=== PATIENT | female | born 1975 | race Caucasian/White ===

== ENCOUNTER → 2019-03-06 | Outpatient (CLI) | payer MEDICARE, MEDICAID, SELFPAY | PROVIDERS: Family Provider Family Medicine; PCP Family Medicine; Referring Provider Specialist; Visit Provider Specialist | DX: G35 Multiple sclerosis (principal) | CPT/HCPCS: 36415; 96365 ==

== ENCOUNTER → 2019-04-13 09:33 | Outpatient (BNVA) | payer MEDICARE, MEDICAID, SELFPAY | PROVIDERS: Family Provider Family Medicine; PCP Family Medicine; Visit Provider Specialist | DX: G43.711 Chronic migraine without aura, intractable, with status migrainosus (principal); G35 Multiple sclerosis | CPT/HCPCS: 36415; 64615; 96374; 96413; 99214; J2323 ==

== ENCOUNTER 2019-05-14 08:08 | Outpatient (CLI) | payer MEDICARE, MEDICAID, SELFPAY ==
[2019-05-19 18:30] LABS: JCV Antibody NEGATIVE; JCV Index Value 0.15
== END 2019-05-14 08:09 | disposition home or self-care (01) ==
LOC: NSACUTE 08:10
PROVIDERS: Family Provider Family Medicine; PCP Family Medicine; Visit Provider Specialist
DX: G35 Multiple sclerosis (principal)
CPT/HCPCS: 86711; J2323

== ENCOUNTER 2019-06-11 08:05 | Outpatient (CLI) | payer MEDICARE, SELFPAY | END 2019-06-11 08:06 | disposition home or self-care (01) | LOC: NSACUTE 08:08 | PROVIDERS: Family Provider Family Medicine; PCP Family Medicine; Visit Provider Specialist | DX: G35 Multiple sclerosis (principal) | CPT/HCPCS: 96413; J2323 ==

== ENCOUNTER 2019-09-02 09:15 | Outpatient (CLI) | payer MEDICARE, MEDICAID, SELFPAY ==
[2019-09-02] MEDS: SODIUM CHLORIDE 0.9% IV (10:57)
[2019-09-02] MEDS: NATALIZUMAB IV (10:57)
[2019-09-02 11:00] VITALS: BP 112/80; PULSE 70; TEMP 36.7
== END 2019-09-02 09:16 | disposition home or self-care (01) ==
LOC: NSACUTE 10:02
PROVIDERS: Family Provider Family Medicine; PCP Family Medicine; Visit Provider Specialist
DX: G35 Multiple sclerosis (principal); G43.711 Chronic migraine without aura, intractable, with status migrainosus
CPT/HCPCS: J2323

== ENCOUNTER 2019-10-05 09:07 | Outpatient (CLI) | payer MEDICARE, MEDICAID, SELFPAY | END 2019-10-05 09:08 | disposition home or self-care (01) | LOC: NSACUTE 09:11 | PROVIDERS: Family Provider Family Medicine; PCP Family Medicine; Visit Provider Specialist | DX: G43.711 Chronic migraine without aura, intractable, with status migrainosus (principal); G35 Multiple sclerosis | CPT/HCPCS: 64615; 99213; J0585; J2323 ==

== ENCOUNTER 2019-11-05 11:42 | Outpatient (CLI) | payer MEDICARE, MEDICAID, SELFPAY ==
[2019-11-05] MEDS: NATALIZUMAB IV (13:29)
[2019-11-05] MEDS: SODIUM CHLORIDE 0.9% IV (13:29)
[2019-11-05 14:43] VITALS: BP 110/88; PULSE 78
== END 2019-11-05 11:43 | disposition home or self-care (01) ==
LOC: NSACUTE 12:10
PROVIDERS: Family Provider Family Medicine; PCP Family Medicine; Visit Provider Specialist
DX: G35 Multiple sclerosis (principal)
CPT/HCPCS: 96374; J2323

== ENCOUNTER 2019-12-07 09:17 | Outpatient (CLI) | payer MEDICARE, MEDICAID, SELFPAY ==
[2019-12-07] MEDS: NATALIZUMAB IV (11:00)
[2019-12-07] MEDS: SODIUM CHLORIDE 0.9% IV (11:00)
== END 2019-12-07 09:18 | disposition home or self-care (01) ==
LOC: NSACUTE 09:23
PROVIDERS: Family Provider Family Medicine; PCP Family Medicine; Visit Provider Specialist
DX: G35 Multiple sclerosis (principal)
CPT/HCPCS: 96365; J2323

== ENCOUNTER 2020-01-11 09:11 | Outpatient (CLI) | payer MEDICARE, MEDICAID, SELFPAY ==
[2020-01-11] MEDS: SODIUM CHLORIDE 0.9% IV (09:56)
[2020-01-11] MEDS: NATALIZUMAB IV (09:56)
== END 2020-01-11 09:12 | disposition home or self-care (01) ==
PROVIDERS: Family Provider Family Medicine; PCP Family Medicine; Visit Provider Specialist
DX: G35 Multiple sclerosis (principal)
CPT/HCPCS: 96365; J2323

== ENCOUNTER 2020-01-29 10:44 | Outpatient (CLI) | payer MEDICARE, MEDICAID, SELFPAY ==
--- NOTE | 2020-01-29 11:08 | XR_ITS ---
WS: [id number] Left shoulder, 3 views, 01/29/2020 Clinical Data: ACUTE LEFT SHOULDER PAIN Comparison: None. Findings: No fractures or dislocations are seen. The AC joint is normal. The adjacent left clavicle, left scapu la and ribs are normal. The soft tissues are unremarkable. XR/XR shoulder LT min 2V* [id number] Impression: Negative left shoulder.
--- NOTE | 2020-01-29 11:09 | XR_ITS ---
WS: [id number] Left knee, 3 views, 01/29/2020 Clinical Data: ACUTE KNEE PAIN LEFT Comparison: None. Findings: No fractures or dislocations are seen. The joint spaces are normal. The patella is intact. The soft t issues are unremarkable. XR/XR knee LT 3V* [id number] Impression: Negative left knee.
== END 2020-01-29 10:45 | disposition home or self-care (01) ==
PROVIDERS: PCP Family Medicine; Visit Provider Registered Nurse
DX: M25.512 Pain in left shoulder (principal); M25.612 Stiffness of left shoulder, not elsewhere classified; W11.XXXA Fall on and from ladder, initial encounter; M25.562 Pain in left knee
CPT/HCPCS: 73030; 73562

== ENCOUNTER 2020-01-29 11:00 | Outpatient (CLI) | payer MEDICARE, MEDICAID, SELFPAY ==
[2020-01-29 13:09] LABS: 25 Hydroxy Vitamin D 57 ng/mL (30-100); Vitamin B12 808 pg/mL (232-1245)
[2020-01-29 13:19] LABS: Hepatitis A Antibody IgM Non-Reactive (Nonreactive); Hepatitis B Core AB, Total Non-Reactive (Nonreactive); Hepatitis B Surface AB 3.5 (0-8.5); Hepatitis B Surface Antigen Non-Reactive (Nonreactive); Hepatitis C Virus Antibody Non-Reactive (Nonreactive)
[2020-02-04 02:08] LABS: JCV Antibody NEGATIVE; JCV Index Value 0.13
== END 2020-01-29 11:01 | disposition home or self-care (01) ==
PROVIDERS: PCP Family Medicine; Visit Provider Psychiatry & Neurology Neurology
DX: G35 Multiple sclerosis (principal)
CPT/HCPCS: 82306; 82607; 86705; 86706; 86709; 86711; 86803; 87340

== ENCOUNTER 2020-02-08 09:12 | Outpatient (CLI) | payer MEDICARE, MEDICAID, SELFPAY ==
[2020-02-08] MEDS: SODIUM CHLORIDE 0.9% IV (10:45)
[2020-02-08] MEDS: NATALIZUMAB IV (10:45)
== END 2020-02-08 09:13 | disposition home or self-care (01) ==
LOC: NSACUTE 09:25
PROVIDERS: PCP Family Medicine; Visit Provider Specialist
DX: G35 Multiple sclerosis (principal)
CPT/HCPCS: 96372; J2323

== ENCOUNTER 2020-02-16 08:33 | Outpatient (CLI) | payer MEDICARE, MEDICAID, SELFPAY ==
--- NOTE | 2020-02-16 09:01 | MR_ITS ---
WS: [id number] MRI LEFT SHOULDER HISTORY: ACUTE PAIN OF LEFT SHOULDER COMPARISON: LEFT shoulder radiograph 01/29/2020. TECHNIQUE: Multiplanar sequences of the shoulder joint are submitted. Minimal hypertrophic changes around the AC joint capsule. No encroachment upon the supraspinatus. Sma ll osteophyte from the distal undersurface of the acromion. No subacromial or subdeltoid bursal fluid . Biceps tendon remains in normal position. No os acromion. No marrow edema or fractures are identified. No joint effusion. Rotator cuff is intact. No tears or r etraction or atrophy. No labral abnormality. MR/MR shoulder LT wo con* [id number] IMPRESSION: Negative MRI LEFT shoulder.
== END 2020-02-16 08:34 | disposition home or self-care (01) ==
LOC: RADWPI 08:40
PROVIDERS: PCP Family Medicine; Visit Provider Registered Nurse
DX: M25.512 Pain in left shoulder (principal); W19.XXXA Unspecified fall, initial encounter; M25.612 Stiffness of left shoulder, not elsewhere classified
CPT/HCPCS: 73221

== ENCOUNTER → 2020-02-25 12:48 | Outpatient (BNVA) | payer MEDICARE, MEDICAID, SELFPAY | PROVIDERS: PCP Family Medicine; Visit Provider Specialist | DX: G43.711 Chronic migraine without aura, intractable, with status migrainosus (principal); G35 Multiple sclerosis | CPT/HCPCS: 64615; 99212; J0585 ==

== ENCOUNTER 2020-03-07 11:10 | Outpatient (CLI) | payer MEDICARE, MEDICAID, SELFPAY ==
[2020-03-07] MEDS: SODIUM CHLORIDE 0.9% IV (13:21)
[2020-03-07] MEDS: NATALIZUMAB IV (13:21)
[2020-03-07 14:25] VITALS: PULSE 66; RESP 14; TEMP 36.3
== END 2020-03-07 11:11 | disposition home or self-care (01) ==
LOC: NSACUTE 11:43
PROVIDERS: PCP Family Medicine; Visit Provider Specialist
DX: G35 Multiple sclerosis (principal)
CPT/HCPCS: 96365; J2323

== ENCOUNTER 2020-04-07 09:23 | Outpatient (CLI) | payer MEDICARE, MEDICAID, SELFPAY ==
[2020-04-07] MEDS: NATALIZUMAB IV (10:15)
[2020-04-07] MEDS: SODIUM CHLORIDE 0.9% IV (10:15)
== END 2020-04-07 09:24 | disposition home or self-care (01) ==
LOC: NSACUTE 09:24
PROVIDERS: PCP Family Medicine; Visit Provider Specialist
DX: G35 Multiple sclerosis (principal)
CPT/HCPCS: 96365; J2323

== ENCOUNTER 2020-05-19 09:14 | Outpatient (CLI) | payer MEDICARE, MEDICAID, SELFPAY ==
[2020-05-19] MEDS: NATALIZUMAB IV (10:25)
[2020-05-19] MEDS: SODIUM CHLORIDE 0.9% IV (10:25)
== END 2020-05-19 09:15 | disposition home or self-care (01) ==
LOC: NSACUTE 09:19
PROVIDERS: PCP Family Medicine; Visit Provider Specialist
DX: G35 Multiple sclerosis (principal)
CPT/HCPCS: 96365; 96366; J2323

== ENCOUNTER → 2020-05-26 09:33 | Outpatient (BNVA) | payer MEDICARE, MEDICAID, SELFPAY | PROVIDERS: PCP Family Medicine; Visit Provider Specialist | DX: G43.711 Chronic migraine without aura, intractable, with status migrainosus (principal) | CPT/HCPCS: 64615; J0585 ==

== ENCOUNTER 2020-06-27 10:14 | Outpatient (CLI) | payer MEDICARE, MEDICAID, SELFPAY ==
[2020-06-27] MEDS: SODIUM CHLORIDE 0.9% IV (10:50)
[2020-06-27] MEDS: NATALIZUMAB IV (10:50)
--- NOTE | 2020-06-27 10:52 | PC.NURSE ---
Lot [id number] EXP 12/16/22
== END 2020-06-27 10:15 | disposition home or self-care (01) ==
PROVIDERS: PCP Family Medicine; Visit Provider Specialist
DX: G35 Multiple sclerosis (principal)
CPT/HCPCS: 96365; J2323

== ENCOUNTER 2020-07-19 14:55 | Outpatient (CLI) | payer MEDICARE, MEDICAID, SELFPAY ==
--- NOTE | 2020-07-19 15:03 | MM_ITS ---
WS: [id number] Bilateral screening digital mammogram, 07/19/2020 Clinical Data: SCREENING Comparison: None. Findings: The breast parenchymal pattern shows heterogeneous density No spiculated masses or clustered calcific ations are seen. There are no secondary signs of carcinoma. MM/[place] [id number] Impression: 1. Negative bilateral mammogram with no prior images for comparison. 2. Recommend annual screening mammograms. BIRADS: 1-Negative FOLLOW UP: 1 Year Follow-up The CAD design checker was used.
== END 2020-07-19 14:56 | disposition home or self-care (01) ==
PROVIDERS: PCP Family Medicine; Visit Provider Registered Nurse
DX: Z12.31 Encounter for screening mammogram for malignant neoplasm of breast (principal)
CPT/HCPCS: 77067

== ENCOUNTER 2020-07-27 14:04 | Outpatient (CLI) | payer MEDICARE, MEDICAID, SELFPAY ==
[2020-07-27] MEDS: NATALIZUMAB IV (15:48)
[2020-07-27] MEDS: SODIUM CHLORIDE 0.9% IV (15:48)
== END 2020-07-27 14:05 | disposition home or self-care (01) ==
LOC: NSACUTE 14:10
PROVIDERS: PCP Family Medicine; Visit Provider Specialist
DX: G35 Multiple sclerosis (principal)
CPT/HCPCS: 96365; J2323

== ENCOUNTER 2020-09-08 09:16 | Outpatient (CLI) | payer MEDICARE, MEDICAID, SELFPAY ==
[2020-09-08] MEDS: NATALIZUMAB IV (10:35)
[2020-09-08] MEDS: SODIUM CHLORIDE 0.9% IV (10:35)
== END 2020-09-08 09:17 | disposition home or self-care (01) ==
LOC: NSACUTE 09:19
PROVIDERS: PCP Family Medicine; Visit Provider Specialist
DX: G43.711 Chronic migraine without aura, intractable, with status migrainosus (principal); G35 Multiple sclerosis; Z71.89 Other specified counseling
CPT/HCPCS: 64615; 96365; 99214; J0585; J2323

== ENCOUNTER 2020-10-18 10:15 | Outpatient (CLI) | payer MEDICARE, MEDICAID, SELFPAY ==
[2020-10-18] MEDS: SODIUM CHLORIDE 0.9% IV (11:15)
[2020-10-18] MEDS: NATALIZUMAB IV (11:15)
== END 2020-10-18 10:16 | disposition home or self-care (01) ==
LOC: NSACUTE 10:19
PROVIDERS: PCP Family Medicine; Visit Provider Specialist
DX: G35 Multiple sclerosis (principal)
CPT/HCPCS: 96365; J2323

== ENCOUNTER 2020-11-24 08:38 | Outpatient (CLI) | payer MEDICARE, MEDICAID, SELFPAY ==
[2020-11-24] MEDS: NATALIZUMAB IV (09:45)
[2020-11-24] MEDS: SODIUM CHLORIDE 0.9% IV (09:45)
== END 2020-11-24 08:39 | disposition home or self-care (01) ==
LOC: NSACUTE 08:41
PROVIDERS: PCP Family Medicine; Visit Provider Specialist
DX: G35 Multiple sclerosis (principal)
CPT/HCPCS: 96365; J2323

== ENCOUNTER 2020-12-26 09:27 | Outpatient (CLI) | payer MEDICARE, MEDICAID, SELFPAY ==
[2020-12-26] MEDS: NATALIZUMAB IV (10:44)
[2020-12-26] MEDS: SODIUM CHLORIDE 0.9% IV (10:44)
== END 2020-12-26 09:28 | disposition home or self-care (01) ==
PROVIDERS: PCP Family Medicine; Visit Provider Specialist
DX: G35 Multiple sclerosis (principal)
CPT/HCPCS: 96365; J2323

== ENCOUNTER → 2020-12-29 08:13 | Outpatient (BNVA) | payer MEDICARE, MEDICAID, SELFPAY | PROVIDERS: PCP Family Medicine; Visit Provider Specialist | DX: G43.711 Chronic migraine without aura, intractable, with status migrainosus (principal); G35 Multiple sclerosis; Z71.89 Other specified counseling | CPT/HCPCS: 64615; 99213; J0585 ==

== ENCOUNTER 2021-02-02 08:09 | Outpatient (CLI) | payer MEDICARE, MEDICAID, SELFPAY ==
[2021-02-02 08:18] VITALS: BP 104/69; PULSE 71; RESP 16; TEMP 36.6; O2SAT 98
[2021-02-02] MEDS: NATALIZUMAB IV (08:59)
[2021-02-02] MEDS: SODIUM CHLORIDE 0.9% IV (08:59)
[2021-02-02] MEDS: sodium chloride 0.9% (100 ml) 100 ML 115 ML IV (09:52)
[2021-02-02 10:27] VITALS: BP 118/73; PULSE 69; RESP 16; TEMP 36.8; O2SAT 99
== END 2021-02-02 08:10 | disposition home or self-care (01) ==
LOC: ONCMED 08:11
PROVIDERS: PCP Family Medicine; Visit Provider Specialist
DX: G35 Multiple sclerosis (principal)
CPT/HCPCS: 96365; J2323

== ENCOUNTER 2021-03-09 09:30 | Outpatient (CLI) | payer MEDICARE, MEDICAID, SELFPAY ==
[2021-03-09 09:46] VITALS: BP 104/71; PULSE 84; RESP 16; TEMP 36.9; O2SAT 98
[2021-03-09] MEDS: SODIUM CHLORIDE 0.9% IV (10:27)
[2021-03-09] MEDS: NATALIZUMAB IV (10:27)
[2021-03-09 11:34] VITALS: BP 107/76; PULSE 75; RESP 16; TEMP 36.6; O2SAT 98
== END 2021-03-09 09:31 | disposition home or self-care (01) ==
LOC: ONCMED 09:39
PROVIDERS: PCP Family Medicine; Visit Provider Internal Medicine Medical Oncology
DX: G35 Multiple sclerosis; G43.711 Chronic migraine without aura, intractable, with status migrainosus; Z79.899 Other long term (current) drug therapy
CPT/HCPCS: 96365; J2323

== ENCOUNTER → 2021-03-23 10:49 | Outpatient (BNVA) | payer MEDICARE, MEDICAID, SELFPAY | PROVIDERS: PCP Family Medicine; Visit Provider Specialist | DX: G43.711 Chronic migraine without aura, intractable, with status migrainosus (principal); G35 Multiple sclerosis | CPT/HCPCS: 64615; 99212; 99213; J0585 ==

== ENCOUNTER 2021-04-06 09:20 | Outpatient (CLI) | payer MEDICARE, MEDICAID, SELFPAY ==
--- NOTE | 2021-04-06 10:05 | PC.PHAR ---
REGARDING JCV TITER AT [place]: PER OLGA LEVINE PATIENT WAS FOUND TO HAVE HIGH JCV TITER AND SEES NEUROLOGIST AT [place]. BASED ON SECOND OPINION, PATIENT IS OK TO RECEIVE TYSABRI TODAY. DONALDO SAID OK WELL.
[2021-04-06 10:45] VITALS: BP 114/72; PULSE 77; RESP 18; TEMP 36.9; O2SAT 97
[2021-04-06] MEDS: NATALIZUMAB IV (10:53)
[2021-04-06] MEDS: SODIUM CHLORIDE 0.9% IV (10:53)
[2021-04-06] MEDS: sodium chloride 0.9% (100 ml) 100 ML 75 ML (10:53)
--- NOTE | 2021-04-18 12:30 | PC.NURSE ---
NATALIZUMAB END TIME Natalizumab 300mg ended at 1155 on 04/06/21. Unable to chart in [employer], due to past the cutoff date to amend.
== END 2021-04-06 09:21 | disposition home or self-care (01) ==
LOC: ONCMED 09:30
PROVIDERS: PCP Family Medicine; Referring Provider Specialist; Visit Provider Internal Medicine Medical Oncology
DX: G35 Multiple sclerosis (principal)
CPT/HCPCS: 96365; 96366; J2323

== ENCOUNTER 2021-05-04 09:11 | Outpatient (CLI) | payer MEDICARE, MEDICAID, SELFPAY ==
[2021-05-04 09:28] VITALS: BP 104/71; PULSE 98; RESP 18; TEMP 36.8; O2SAT 97
[2021-05-04] MEDS: SODIUM CHLORIDE 0.9% IV (10:13)
[2021-05-04] MEDS: NATALIZUMAB IV (10:13)
[2021-05-04 11:24] VITALS: BP 114/76; PULSE 88; RESP 18; TEMP 37.1; O2SAT 97
== END 2021-05-04 09:12 | disposition home or self-care (01) ==
LOC: ONCMED 09:17
PROVIDERS: PCP Family Medicine; Referring Provider Specialist; Visit Provider Specialist
DX: G35 Multiple sclerosis (principal)
CPT/HCPCS: 96365; J2323

== ENCOUNTER 2021-06-01 09:17 | Outpatient (CLI) | payer MEDICARE, MEDICAID, SELFPAY ==
[2021-06-01 09:31] VITALS: BP 103/72; PULSE 88; RESP 18; TEMP 36.8; O2SAT 96
[2021-06-01] MEDS: sodium chloride 0.9% 250 ML 50 ML IV (09:47)
[2021-06-01] MEDS: NATALIZUMAB IV (10:01)
[2021-06-01] MEDS: SODIUM CHLORIDE 0.9% IV (10:01)
[2021-06-01 11:22] VITALS: BP 117/80; PULSE 89; RESP 18; TEMP 37.1; O2SAT 98
== END 2021-06-01 09:18 | disposition home or self-care (01) ==
PROVIDERS: PCP Family Medicine; Referring Provider Specialist; Visit Provider Specialist
DX: G35 Multiple sclerosis (principal)
CPT/HCPCS: 96365; J2323; J7050

== ENCOUNTER → 2021-06-15 11:54 | Outpatient (BNVA) | payer MEDICARE, MEDICAID, SELFPAY | PROVIDERS: PCP Family Medicine; Visit Provider Specialist | DX: G43.711 Chronic migraine without aura, intractable, with status migrainosus (principal) | CPT/HCPCS: 64615; J0585 ==

== ENCOUNTER 2021-07-03 09:08 | Outpatient (CLI) | payer MEDICARE, SELFPAY ==
[2021-07-03 09:29] VITALS: BP 113/76; PULSE 82; RESP 18; TEMP 36.8; O2SAT 98
[2021-07-03] MEDS: sodium chloride 0.9% 250 ML 50 ML IV (09:38)
[2021-07-03] MEDS: SODIUM CHLORIDE 0.9% IV (09:49)
[2021-07-03] MEDS: NATALIZUMAB IV (09:49)
[2021-07-03 11:42] VITALS: BP 133/82; PULSE 80; RESP 18; TEMP 36.6; O2SAT 98
== END 2021-07-03 09:09 | disposition home or self-care (01) ==
PROVIDERS: PCP Family Medicine; Referring Provider Specialist; Visit Provider Specialist
DX: G35 Multiple sclerosis (principal)
CPT/HCPCS: 96365; J2323; J7050

== ENCOUNTER 2021-08-01 08:54 | Outpatient (CLI) | payer MEDICARE, SELFPAY ==
[2021-08-01 09:13] VITALS: BP 113/73; PULSE 73; RESP 18; TEMP 37; O2SAT 98
[2021-08-01] MEDS: sodium chloride 0.9% 250 ML 50 ML IV (09:36)
[2021-08-01] MEDS: SODIUM CHLORIDE 0.9% IV (09:44)
[2021-08-01] MEDS: NATALIZUMAB IV (09:44)
[2021-08-01 10:44] VITALS: BP 112/73; PULSE 82; RESP 18; TEMP 36.8; O2SAT 99
== END 2021-08-01 08:55 | disposition home or self-care (01) ==
PROVIDERS: PCP Family Medicine; Referring Provider Specialist; Visit Provider Specialist
DX: G35 Multiple sclerosis (principal)
CPT/HCPCS: 96365; J2323; J7050

== ENCOUNTER 2021-09-04 09:10 | Outpatient (CLI) | payer MEDICARE, MEDICAID, SELFPAY ==
[2021-09-04 09:20] VITALS: BP 107/71; PULSE 75; RESP 18; TEMP 36.4; O2SAT 97
[2021-09-04] MEDS: sodium chloride 0.9% 250 ML 50 ML IV (09:41)
[2021-09-04] MEDS: SODIUM CHLORIDE 0.9% IV (09:58)
[2021-09-04] MEDS: NATALIZUMAB IV (09:58)
[2021-09-04 11:23] VITALS: BP 98/64; PULSE 78; RESP 18; TEMP 36.4; O2SAT 98
== END 2021-09-04 09:11 | disposition home or self-care (01) ==
PROVIDERS: PCP Family Medicine; Referring Provider Specialist; Visit Provider Specialist
DX: G35 Multiple sclerosis (principal)
CPT/HCPCS: 96365; J2323; J7050

== ENCOUNTER → 2021-09-07 12:23 | Outpatient (BNVA) | payer MEDICARE, MEDICAID, SELFPAY | PROVIDERS: PCP Family Medicine; Visit Provider Specialist | DX: G43.711 Chronic migraine without aura, intractable, with status migrainosus (principal) | CPT/HCPCS: 64615; J0585 ==

== ENCOUNTER 2021-10-02 09:01 | Outpatient (CLI) | payer MEDICARE, MEDICAID, SELFPAY ==
[2021-10-02 09:10] VITALS: BP 101/71; PULSE 75; RESP 18; TEMP 36.2; O2SAT 99
[2021-10-02] MEDS: sodium chloride 0.9% 250 ML 50 ML IV (09:37)
[2021-10-02 10:35] VITALS: BP 101/68; PULSE 83; RESP 18; TEMP 36.6; O2SAT 99
== END 2021-10-02 09:02 | disposition home or self-care (01) ==
PROVIDERS: PCP Family Medicine; Referring Provider Specialist; Visit Provider Specialist
DX: G35 Multiple sclerosis (principal)
CPT/HCPCS: 96360; J7050

== ENCOUNTER 2021-10-05 10:40 | Outpatient (CLI) | payer MEDICARE, MEDICAID, SELFPAY ==
[2021-10-05 10:53] VITALS: BP 109/71; PULSE 73; RESP 18; TEMP 36.4; O2SAT 98
[2021-10-05] MEDS: sodium chloride 0.9% 250 ML 50 ML IV (11:36)
[2021-10-05] MEDS: SODIUM CHLORIDE 0.9% IV (11:40)
[2021-10-05] MEDS: NATALIZUMAB IV (11:40)
[2021-10-05 12:47] VITALS: BP 112/71; PULSE 70; RESP 18; TEMP 36.7; O2SAT 99
== END 2021-10-05 10:41 | disposition home or self-care (01) ==
PROVIDERS: PCP Family Medicine; Referring Provider Specialist; Visit Provider Specialist
DX: G35 Multiple sclerosis (principal)
CPT/HCPCS: 96365; J2323; J7050

== ENCOUNTER 2021-11-02 10:56 | Outpatient (CLI) | payer MEDICARE, MEDICAID, SELFPAY ==
[2021-11-02 11:05] VITALS: BP 104/65; PULSE 84; RESP 18; TEMP 37; O2SAT 97
[2021-11-02] MEDS: sodium chloride 0.9% 250 ML 50 ML IV (11:30)
[2021-11-02] MEDS: SODIUM CHLORIDE 0.9% IV (11:37)
[2021-11-02] MEDS: NATALIZUMAB IV (11:37)
[2021-11-02 12:48] VITALS: BP 107/72; PULSE 75; RESP 18; TEMP 36.8; O2SAT 97
== END 2021-11-02 10:57 | disposition home or self-care (01) ==
PROVIDERS: PCP Family Medicine; Visit Provider Specialist
DX: G35 Multiple sclerosis (principal)
CPT/HCPCS: 96365; J2323; J7050

== ENCOUNTER 2021-11-30 09:00 | Outpatient (CLI) | payer MEDICARE, MEDICAID, SELFPAY ==
[2021-11-30 09:09] VITALS: BP 103/68; PULSE 79; RESP 18; TEMP 37.1; O2SAT 98
[2021-11-30] MEDS: sodium chloride 0.9% 250 ML 50 ML IV (09:34)
[2021-11-30] MEDS: NATALIZUMAB IV (09:47)
[2021-11-30] MEDS: SODIUM CHLORIDE 0.9% IV (09:47)
[2021-11-30 10:59] VITALS: BP 120/73; PULSE 74; RESP 18; TEMP 37; O2SAT 99
== END 2021-11-30 09:01 | disposition home or self-care (01) ==
PROVIDERS: PCP Family Medicine; Visit Provider Specialist
DX: G35 Multiple sclerosis (principal); G43.711 Chronic migraine without aura, intractable, with status migrainosus
CPT/HCPCS: 64615; 96365; J0585; J2323; J7050

== ENCOUNTER 2022-01-02 11:04 | Outpatient (CLI) | payer MEDICARE, MEDICAID, SELFPAY ==
[2022-01-02 11:32] VITALS: BP 110/73; PULSE 75; RESP 18; TEMP 37.3; O2SAT 99
[2022-01-02] MEDS: sodium chloride 0.9% 250 ML 50 ML IV (11:44)
[2022-01-02] MEDS: NATALIZUMAB IV (11:50)
[2022-01-02] MEDS: SODIUM CHLORIDE 0.9% IV (11:50)
[2022-01-02 13:09] VITALS: BP 107/68; PULSE 77; RESP 18; TEMP 37.1; O2SAT 99
== END 2022-01-02 11:05 | disposition home or self-care (01) ==
LOC: ONCMED 11:05
PROVIDERS: PCP Family Medicine; Visit Provider Specialist
DX: G35 Multiple sclerosis (principal)
CPT/HCPCS: 96365; J2323; J7050

== ENCOUNTER 2022-01-31 12:06 | Outpatient (CLI) | payer MEDICARE, MEDICAID, SELFPAY ==
[2022-01-31 12:15] VITALS: BP 157/80; PULSE 75; RESP 18; TEMP 36.5; O2SAT 96
[2022-01-31] MEDS: sodium chloride 0.9% 250 ML 50 ML IV (12:49)
[2022-01-31] MEDS: NATALIZUMAB IV (13:01)
[2022-01-31] MEDS: SODIUM CHLORIDE 0.9% IV (13:01)
[2022-01-31 14:14] VITALS: BP 134/81; PULSE 77; RESP 18; TEMP 36.9; O2SAT 98
== END 2022-01-31 12:07 | disposition home or self-care (01) ==
LOC: ONCMED 12:09
PROVIDERS: PCP Family Medicine; Visit Provider Specialist
DX: G35 Multiple sclerosis (principal)
CPT/HCPCS: 96365; J2323; J7050

== ENCOUNTER 2022-02-19 11:09 | Outpatient (CLI) | payer MEDICARE, MEDICAID, SELFPAY ==
--- NOTE | 2022-02-19 11:18 | MM_ITS ---
WS: [id number] BILATERAL SCREENING DIGITAL TOMOSYNTHESIS MAMMOGRAM WITH CAD HISTORY: SCREENING COMPARISON: 07/19/2020 Bilateral CC and MLO views with tomosynthesis and synthetic mammography submitted. Computer aided det ection analyzed. Breast composition: The breasts are heterogeneously dense, which may obscure small masses. No suspici ous masses, microcalcifications or architectural distortion. MM/[place] [id number] IMPRESSION: BI-RADS: 1-Negative FOLLOW UP: 1 Year Follow-up
== END 2022-02-19 11:10 | disposition home or self-care (01) ==
LOC: RAD 11:10
PROVIDERS: PCP Family Medicine; Visit Provider Family Medicine
DX: Z12.31 Encounter for screening mammogram for malignant neoplasm of breast (principal)
CPT/HCPCS: 77063; 77067

== ENCOUNTER 2022-02-28 10:21 | Outpatient (CLI) | payer MEDICARE, MEDICAID, SELFPAY ==
[2022-02-28] MEDS: sodium chloride 0.9% 250 ML 50 ML IV (10:34)
[2022-02-28 10:40] VITALS: BP 104/73; PULSE 87; RESP 16; TEMP 36.9; O2SAT 97
[2022-02-28] MEDS: SODIUM CHLORIDE 0.9% IV (10:57)
[2022-02-28] MEDS: NATALIZUMAB IV (10:57)
[2022-02-28 12:06] VITALS: BP 102/69; PULSE 90; RESP 18; TEMP 36.7; O2SAT 98
== END 2022-02-28 10:22 | disposition home or self-care (01) ==
LOC: ONCMED 10:23
PROVIDERS: PCP Family Medicine; Visit Provider Specialist
DX: G35 Multiple sclerosis (principal)
CPT/HCPCS: 96365; J2323; J7050

== ENCOUNTER 2022-03-28 10:59 | Outpatient (CLI) | payer MEDICARE, SELFPAY ==
[2022-03-28 11:28] VITALS: BP 108/75; PULSE 80; RESP 18; TEMP 36.5; O2SAT 97
[2022-03-28] MEDS: sodium chloride 0.9% 250 ML 50 ML IV (11:43)
[2022-03-28] MEDS: SODIUM CHLORIDE 0.9% IV (11:48)
[2022-03-28] MEDS: NATALIZUMAB IV (11:48)
[2022-03-28 12:56] VITALS: BP 120/76; PULSE 71; RESP 18; TEMP 36.3; O2SAT 99
== END 2022-03-28 11:00 | disposition home or self-care (01) ==
LOC: ONCMED 11:00
PROVIDERS: PCP Family Medicine; Visit Provider Specialist
DX: G35 Multiple sclerosis (principal)
CPT/HCPCS: 96365; J2323; J7050

== ENCOUNTER 2022-04-25 10:02 | Outpatient (CLI) | payer MEDICARE, SELFPAY ==
[2022-04-25 10:27] VITALS: BP 110/79; PULSE 74; RESP 16; TEMP 36.8; O2SAT 99
[2022-04-25] MEDS: sodium chloride 0.9% 250 ML 50 ML IV (10:42)
[2022-04-25] MEDS: SODIUM CHLORIDE 0.9% IV (11:03)
[2022-04-25] MEDS: NATALIZUMAB IV (11:03)
[2022-04-25 12:16] VITALS: BP 101/66; PULSE 79; RESP 16; TEMP 36.4; O2SAT 99
== END 2022-04-25 10:03 | disposition home or self-care (01) ==
PROVIDERS: PCP Family Medicine; Visit Provider Specialist
DX: G35 Multiple sclerosis (principal)
CPT/HCPCS: 96365; J2323; J7050

== ENCOUNTER → 2022-05-17 11:09 | Outpatient (BNVA) | payer MEDICARE, MEDICAID, SELFPAY | PROVIDERS: PCP Family Medicine; Visit Provider Specialist | DX: G43.711 Chronic migraine without aura, intractable, with status migrainosus (principal); H61.91 Disorder of right external ear, unspecified | CPT/HCPCS: 64615; 99212; J0585 ==

== ENCOUNTER 2022-05-23 14:03 | Oncology outpatient (recurring) (ONCR) | payer MEDICARE, SELFPAY ==
[2022-05-23 14:12] VITALS: BP 107/73; PULSE 71; RESP 16; TEMP 36.8; O2SAT 99
[2022-05-23] MEDS: sodium chloride 0.9% 250 ML 75 ML IV (14:40)
[2022-05-23] MEDS: SODIUM CHLORIDE 0.9% IV (14:41)
[2022-05-23] MEDS: NATALIZUMAB IV (14:41)
[2022-05-23 15:53] VITALS: BP 116/71; PULSE 69; RESP 16; TEMP 36.7; O2SAT 97
== END 2022-06-15 23:59 | disposition home or self-care (01) ==
PROVIDERS: PCP Family Medicine; Visit Provider Specialist
DX: G35 Multiple sclerosis (principal); Z79.899 Other long term (current) drug therapy
CPT/HCPCS: 96365; J2323; J7050

== ENCOUNTER 2022-06-26 14:05 | Oncology outpatient (recurring) (ONCR) | payer MEDICARE, MEDICAID, SELFPAY ==
[2022-06-22 09:43] VITALS: BMI 24.2
[2022-06-22 11:52] VITALS: BP 112/70; PULSE 64; RESP 16; TEMP 36.3; O2SAT 99
[2022-06-26 14:26] VITALS: BP 102/64; PULSE 74; TEMP 36.5; O2SAT 99
[2022-06-26] MEDS: NATALIZUMAB IV (15:18)
[2022-06-26] MEDS: SODIUM CHLORIDE 0.9% IV (15:18)
[2022-06-26 16:23] VITALS: BP 112/66; PULSE 71; TEMP 37.1; O2SAT 99
== END 2022-07-15 23:59 | disposition home or self-care (01) ==
PROVIDERS: PCP Family Medicine; Visit Provider Specialist
DX: G35 Multiple sclerosis (principal)
CPT/HCPCS: 96365; 96413; J2323

== ENCOUNTER 2022-08-07 10:34 | Oncology outpatient (recurring) (ONCR) | payer MEDICARE, MEDICAID, SELFPAY ==
[2022-08-07 11:55] VITALS: BP 102/63; PULSE 64; RESP 16; TEMP 36.7; O2SAT 98
[2022-08-07 11:56] VITALS: BMI 24.3
[2022-08-07] MEDS: sodium chloride 0.9% (100 ml) 100 ML 50 ML (12:07)
[2022-08-07] MEDS: NATALIZUMAB IV (12:10)
[2022-08-07] MEDS: SODIUM CHLORIDE 0.9% IV (12:10)
[2022-08-07 13:45] VITALS: BP 108/69; PULSE 75; RESP 16; TEMP 36.8; O2SAT 99
== END 2022-08-15 23:59 | disposition home or self-care (01) ==
PROVIDERS: PCP Family Medicine; Visit Provider Specialist
DX: G35 Multiple sclerosis (principal)
CPT/HCPCS: 96365; J2323

== ENCOUNTER → 2022-08-09 10:20 | Outpatient (BNVA) | payer MEDICARE, SELFPAY | PROVIDERS: PCP Family Medicine; Visit Provider Specialist | DX: G43.711 Chronic migraine without aura, intractable, with status migrainosus (principal) | CPT/HCPCS: 64615; J0585 ==

== ENCOUNTER → 2022-08-22 13:35 | Outpatient (BNVA) | payer MEDICARE, MEDICAID, SELFPAY | PROVIDERS: PCP Family Medicine; Visit Provider Dermatology | DX: D22.61 Melanocytic nevi of right upper limb, including shoulder; L81.4 Other melanin hyperpigmentation; H61.001 Unspecified perichondritis of right external ear | CPT/HCPCS: 69100; 99213 ==

== ENCOUNTER 2022-09-04 13:18 | Oncology outpatient (recurring) (ONCR) | payer MEDICARE, SELFPAY ==
[2022-09-04 14:00] VITALS: BP 111/67; PULSE 79; RESP 16; TEMP 36.3; O2SAT 99
[2022-09-04] MEDS: SODIUM CHLORIDE 0.9% IV (14:20)
[2022-09-04] MEDS: NATALIZUMAB IV (14:20)
[2022-09-04 15:35] VITALS: BP 97/66; PULSE 86; RESP 18; TEMP 36.8; O2SAT 98
== END 2022-09-14 23:59 | disposition home or self-care (01) ==
PROVIDERS: PCP Family Medicine; Visit Provider Specialist
DX: G35 Multiple sclerosis (principal)
CPT/HCPCS: 96365; J2323

== ENCOUNTER 2022-10-02 13:06 | Oncology outpatient (recurring) (ONCR) | payer MEDICARE, SELFPAY ==
[2022-10-02 13:17] VITALS: BMI 22.8
[2022-10-02 13:47] VITALS: BP 115/68; PULSE 69; RESP 16; TEMP 36.4; O2SAT 98
[2022-10-02] MEDS: SODIUM CHLORIDE 0.9% IV (14:05)
[2022-10-02] MEDS: NATALIZUMAB IV (14:05)
[2022-10-02 15:11] VITALS: BP 113/76; PULSE 79; TEMP 36.8; O2SAT 98
== END 2022-10-15 23:59 | disposition home or self-care (01) ==
PROVIDERS: PCP Family Medicine; Visit Provider Specialist
DX: G35 Multiple sclerosis (principal)
CPT/HCPCS: 96413; J2323

== ENCOUNTER 2022-10-30 13:27 | Oncology outpatient (recurring) (ONCR) | payer MEDICARE, MEDICAID, SELFPAY ==
[2022-10-30 14:00] VITALS: BMI 22.8
[2022-10-30 14:16] VITALS: BP 121/65; PULSE 64; RESP 18; TEMP 36.5; O2SAT 98
[2022-10-30] MEDS: NATALIZUMAB IV (14:42)
[2022-10-30] MEDS: SODIUM CHLORIDE 0.9% IV (14:42)
[2022-10-30 15:55] VITALS: BP 121/76; PULSE 79; RESP 17; TEMP 36.4; O2SAT 98
== END 2022-11-15 23:59 | disposition home or self-care (01) ==
PROVIDERS: PCP Family Medicine; Visit Provider Specialist
DX: G35 Multiple sclerosis (principal)
CPT/HCPCS: 96413; J2323

== ENCOUNTER 2023-01-07 08:25 | Oncology outpatient (recurring) (ONCR) | payer MEDICARE, MEDICAID, SELFPAY ==
[2023-01-07 09:04] VITALS: BP 115/76; PULSE 64; RESP 17; TEMP 36.5; O2SAT 99
[2023-01-07 09:08] VITALS: BMI 22.8
[2023-01-07] MEDS: NATALIZUMAB IV (09:33)
[2023-01-07] MEDS: SODIUM CHLORIDE 0.9% IV (09:33)
[2023-01-07 10:32] VITALS: BP 116/70; PULSE 71; RESP 18; TEMP 36.2; O2SAT 99
== END 2023-01-15 23:59 | disposition home or self-care (01) ==
PROVIDERS: PCP Family Medicine; Visit Provider Specialist
DX: G35 Multiple sclerosis (principal)
CPT/HCPCS: 96413; J2323

== ENCOUNTER 2023-02-04 14:38 | Oncology outpatient (recurring) (ONCR) | payer MEDICARE, MEDICAID, SELFPAY ==
[2023-02-04 15:24] VITALS: BP 106/66; PULSE 71; RESP 16; TEMP 36.6; O2SAT 99
[2023-02-04] MEDS: NATALIZUMAB IV (15:59)
[2023-02-04] MEDS: SODIUM CHLORIDE 0.9% IV (15:59)
[2023-02-04 17:03] VITALS: BP 117/78; PULSE 68; RESP 16; TEMP 36.6; O2SAT 97
== END 2023-02-14 23:59 | disposition home or self-care (01) ==
PROVIDERS: PCP Family Medicine; Visit Provider Specialist
DX: G35 Multiple sclerosis (principal)
CPT/HCPCS: 96365; J2323

== ENCOUNTER → 2023-02-14 09:32 | Outpatient (BNVA) | payer MEDICARE, SELFPAY | PROVIDERS: PCP Family Medicine; Visit Provider Specialist | DX: G43.711 Chronic migraine without aura, intractable, with status migrainosus (principal); G35 Multiple sclerosis | CPT/HCPCS: 64615; 95911 ==

== ENCOUNTER 2023-03-04 13:11 | Oncology outpatient (recurring) (ONCR) | payer MEDICARE, SELFPAY ==
[2023-03-04 13:49] VITALS: BP 95/66; PULSE 78; RESP 16; O2SAT 96
[2023-03-04] MEDS: NATALIZUMAB IV (14:09)
[2023-03-04] MEDS: SODIUM CHLORIDE 0.9% IV (14:09)
[2023-03-04 15:55] VITALS: BP 103/70; PULSE 73; O2SAT 99
== END 2023-03-17 23:59 | disposition home or self-care (01) ==
PROVIDERS: PCP Family Medicine; Visit Provider Specialist
DX: G35 Multiple sclerosis (principal)
CPT/HCPCS: 96413; J2323

== ENCOUNTER 2023-04-22 13:06 | Oncology outpatient (recurring) (ONCR) | payer MEDICARE, MEDICAID, SELFPAY ==
[2023-04-22] MEDS: NATALIZUMAB IV (14:05)
[2023-04-22] MEDS: SODIUM CHLORIDE 0.9% IV (14:05)
== END 2023-05-16 23:59 | disposition home or self-care (01) ==
PROVIDERS: PCP Family Medicine; Visit Provider Specialist
DX: G35 Multiple sclerosis (principal)
CPT/HCPCS: 96413; J2323

== ENCOUNTER 2023-05-16 10:37 | Outpatient (CLI) | payer MEDICARE, MEDICAID, BC, SELFPAY ==
--- NOTE | 2023-05-16 10:30 | MM_ITS ---
WS: [id number] VIEWS: MLO and CC views both breasts. 3D digital tomosynthesis is also included in this exam. Comparison made with prior exam of 07/19/2020, 02/19/2022.. Findings: There was no sign of mass, architectural distortion or suspicious calcification in either breast. The breasts are extremely dense which lowers the sensitivity of mammography 1 Impression: MM/[place] [id number] BI-RADS: 1-Negative FOLLOW-UP: 1 Year Follow-up This mammogram was also analyzed by the Computer Aided Detection System [employer]2 [employer].
== END 2023-05-16 10:38 | disposition home or self-care (01) ==
LOC: MOBLMAM 10:48
PROVIDERS: PCP Family Medicine; Visit Provider Family Medicine
DX: Z12.31 Encounter for screening mammogram for malignant neoplasm of breast (principal); R92.30 Dense breasts, unspecified
CPT/HCPCS: 77063; 77067

== ENCOUNTER 2023-05-20 12:02 | Oncology outpatient (recurring) (ONCR) | payer MEDICARE, MEDICAID, SELFPAY ==
[2023-05-20] MEDS: NATALIZUMAB IV (13:08)
[2023-05-20] MEDS: SODIUM CHLORIDE 0.9% IV (13:08)
[2023-05-20 14:17] VITALS: BP 109/71; PULSE 76; O2SAT 98
== END 2023-06-16 23:59 | disposition home or self-care (01) ==
PROVIDERS: PCP Family Medicine; Visit Provider Specialist
DX: G35 Multiple sclerosis (principal)
CPT/HCPCS: 96413; J2323

== ENCOUNTER 2023-06-27 12:42 | Oncology outpatient (recurring) (ONCR) | payer MEDICARE, MEDICAID, SELFPAY ==
[2023-06-27 13:51] VITALS: BP 107/68; PULSE 60; RESP 18; TEMP 36; O2SAT 95
[2023-06-27] MEDS: SODIUM CHLORIDE 0.9% IV (13:55)
[2023-06-27] MEDS: NATALIZUMAB IV (13:55)
[2023-06-27 14:55] VITALS: BP 118/74; PULSE 71; RESP 18; TEMP 36.4; O2SAT 98
== END 2023-07-16 23:59 | disposition home or self-care (01) ==
LOC: ONCMED 12:43
PROVIDERS: PCP Family Medicine; Visit Provider Psychiatry & Neurology Neurology
DX: G35 Multiple sclerosis (principal)
CPT/HCPCS: 96365; J2323

== ENCOUNTER 2023-07-25 13:03 | Oncology outpatient (recurring) (ONCR) | payer MEDICARE, SELFPAY ==
[2023-07-25 13:19] VITALS: BP 105/64; PULSE 67; TEMP 36.1; O2SAT 97
[2023-07-25] MEDS: NATALIZUMAB IV (14:07)
[2023-07-25] MEDS: SODIUM CHLORIDE 0.9% IV (14:07)
[2023-07-25 14:50] VITALS: BP 104/67; PULSE 90; TEMP 36.6; O2SAT 97
== END 2023-07-25 23:59 | disposition home or self-care (01) ==
LOC: ONCMED 13:03
PROVIDERS: PCP Family Medicine; Visit Provider Psychiatry & Neurology Neurology
DX: G35 Multiple sclerosis (principal); G43.711 Chronic migraine without aura, intractable, with status migrainosus
CPT/HCPCS: 64615; 96413; J0585; J2323

== ENCOUNTER 2023-09-24 08:58 | Oncology outpatient (recurring) (ONCR) | payer MEDICARE, SELFPAY ==
[2023-09-24 09:49] VITALS: BP 98/61; PULSE 69; RESP 16; TEMP 35.8; O2SAT 98
[2023-09-24] MEDS: SODIUM CHLORIDE 0.9% IV (10:20)
[2023-09-24] MEDS: NATALIZUMAB IV (10:20)
[2023-09-24 11:39] VITALS: BP 110/74; PULSE 67; RESP 16; TEMP 35.9; O2SAT 98
== END 2023-10-16 23:59 | disposition home or self-care (01) ==
PROVIDERS: PCP Family Medicine; Visit Provider Psychiatry & Neurology Neurology
DX: G35 Multiple sclerosis (principal)
CPT/HCPCS: 96413; J2323

== ENCOUNTER 2023-10-30 11:46 | Oncology outpatient (recurring) (ONCR) | payer MEDICARE, SELFPAY ==
[2023-10-30 12:04] VITALS: BP 99/65; PULSE 73; RESP 16; TEMP 36.5; O2SAT 97
[2023-10-30] MEDS: NATALIZUMAB IV (12:21)
[2023-10-30] MEDS: SODIUM CHLORIDE 0.9% IV (12:21)
[2023-10-30 13:42] VITALS: BP 97/65; PULSE 69; RESP 16; TEMP 36.3; O2SAT 99
== END 2023-11-16 23:59 | disposition home or self-care (01) ==
PROVIDERS: PCP Family Medicine; Visit Provider Psychiatry & Neurology Neurology
DX: G35 Multiple sclerosis (principal); Z79.899 Other long term (current) drug therapy
CPT/HCPCS: 96365; 96413; J2323

== ENCOUNTER → 2023-11-07 11:00 | Outpatient (BNVA) | payer MEDICARE, SELFPAY | PROVIDERS: PCP Family Medicine; Visit Provider Specialist | DX: G43.711 Chronic migraine without aura, intractable, with status migrainosus (principal); G35 Multiple sclerosis | CPT/HCPCS: 64615 ==

== ENCOUNTER 2023-12-11 13:30 | Oncology outpatient (recurring) (ONCR) | payer MEDICARE, SELFPAY ==
[2023-12-11 13:50] VITALS: BP 105/71; PULSE 70; RESP 16; TEMP 36.8; O2SAT 95
[2023-12-11] MEDS: NATALIZUMAB IV (14:20)
[2023-12-11] MEDS: SODIUM CHLORIDE 0.9% IV (14:20)
[2023-12-11 15:25] VITALS: BP 105/69; PULSE 71; RESP 16; TEMP 36.6; O2SAT 97
== END 2023-12-16 23:59 | disposition home or self-care (01) ==
PROVIDERS: PCP Family Medicine; Visit Provider Psychiatry & Neurology Neurology
DX: G35 Multiple sclerosis (principal); Z79.899 Other long term (current) drug therapy
CPT/HCPCS: 96413; J2323

== ENCOUNTER 2024-01-08 13:06 | Oncology outpatient (recurring) (ONCR) | payer MEDICARE, SELFPAY ==
[2024-01-08] MEDS: NATALIZUMAB IV (13:52)
[2024-01-08] MEDS: SODIUM CHLORIDE 0.9% IV (13:52)
[2024-01-08 15:05] VITALS: BP 112/78; PULSE 84; RESP 17; TEMP 36.4; O2SAT 98
== END 2024-01-16 23:59 | disposition home or self-care (01) ==
PROVIDERS: PCP Family Medicine; Visit Provider Psychiatry & Neurology Neurology
DX: G35 Multiple sclerosis (principal); Z79.899 Other long term (current) drug therapy
CPT/HCPCS: 96413; J2323

== ENCOUNTER 2024-02-05 13:48 | Oncology outpatient (recurring) (ONCR) | payer MEDICARE, SELFPAY ==
[2024-02-05 14:17] VITALS: BP 107/72; PULSE 77; TEMP 36.4; O2SAT 97
[2024-02-05] MEDS: SODIUM CHLORIDE 0.9% IV (15:01)
[2024-02-05] MEDS: NATALIZUMAB IV (15:01)
[2024-02-05 16:12] VITALS: BP 112/75; PULSE 76; RESP 16; TEMP 36.4; O2SAT 97
== END 2024-02-15 23:59 | disposition home or self-care (01) ==
PROVIDERS: PCP Family Medicine; Visit Provider Psychiatry & Neurology Neurology
DX: G35 Multiple sclerosis (principal); Z79.899 Other long term (current) drug therapy
CPT/HCPCS: 96413; J2323

== ENCOUNTER → 2024-02-12 12:30 | Outpatient (BNVA) | payer MEDICARE, SELFPAY | PROVIDERS: PCP Family Medicine; Visit Provider Specialist | DX: G43.711 Chronic migraine without aura, intractable, with status migrainosus (principal) | CPT/HCPCS: 64615 ==

== ENCOUNTER 2024-03-04 10:42 | Oncology outpatient (recurring) (ONCR) | payer MEDICARE, SELFPAY ==
[2024-03-04 11:06] VITALS: BP 106/71; PULSE 75; TEMP 36.9; O2SAT 99
[2024-03-04] MEDS: NATALIZUMAB IV (11:26)
[2024-03-04] MEDS: SODIUM CHLORIDE 0.9% IV (11:26)
[2024-03-04 12:37] VITALS: BP 116/76; PULSE 77; RESP 15; TEMP 37.1; O2SAT 99
== END 2024-03-17 23:59 | disposition home or self-care (01) ==
LOC: ONCMED 10:42
PROVIDERS: PCP Family Medicine; Visit Provider Psychiatry & Neurology Neurology
DX: G35 Multiple sclerosis (principal); Z79.899 Other long term (current) drug therapy
CPT/HCPCS: 96413; J2323

== ENCOUNTER 2024-04-02 13:33 | Oncology outpatient (recurring) (ONCR) | payer MEDICARE, SELFPAY ==
[2024-04-02] MEDS: NATALIZUMAB IV (14:34)
[2024-04-02] MEDS: SODIUM CHLORIDE 0.9% IV (14:34)
[2024-04-02 15:49] VITALS: BP 127/71; PULSE 74; RESP 18; TEMP 36.8; O2SAT 97
== END 2024-04-17 23:59 | disposition home or self-care (01) ==
PROVIDERS: PCP Family Medicine; Visit Provider Psychiatry & Neurology Neurology
DX: G35 Multiple sclerosis (principal); Z79.899 Other long term (current) drug therapy
CPT/HCPCS: 96365; J2323

== ENCOUNTER 2024-04-07 13:35 | Outpatient (CLI) | payer MEDICARE, SELFPAY ==
--- NOTE | 2024-04-07 13:54 | XRR_ITS ---
PROCEDURE INFORMATION: Exam: XR Left Shoulder Exam date and time: 04/07/2024 1:58 PM Age: 48 years old Clinical indication: Pain and injury or trauma; Blunt trauma (contusions or hematomas); Shoulder; Left; Injury date: 1 day ago; Injury details: Fall x1 day, pain along length of posterior arm when abducting arm. Limited rom and no strength when abducting arm; Additional info: Pain in left shoulder (m25.512) TECHNIQUE: Imaging protocol: Radiologic exam of the left shoulder. Views: 2 or more views. COMPARISON: MR shoulder LT wo con* [id number] 02/16/2020 8:52 AM FINDINGS: Bones/joints: No significant pathology. Soft tissues: Normal. XR/XR shoulder LT min 2V* [id number] IMPRESSION: No significant pathology.
== END 2024-04-07 13:36 | disposition home or self-care (01) ==
LOC: RAD 13:40
PROVIDERS: PCP Family Medicine; Visit Provider Family Medicine
DX: M25.512 Pain in left shoulder (principal); W19.XXXA Unspecified fall, initial encounter
CPT/HCPCS: 73030

== ENCOUNTER → 2024-05-08 10:04 | Outpatient (BNVA) | payer MEDICARE, SELFPAY | PROVIDERS: PCP Family Medicine; Visit Provider Specialist | DX: G43.711 Chronic migraine without aura, intractable, with status migrainosus (principal) | CPT/HCPCS: 64615 ==

== ENCOUNTER 2024-06-04 11:00 | Outpatient (CLI) | payer MEDICARE, SELFPAY ==
--- NOTE | 2024-06-04 11:00 | MM_ITS ---
WS: [id number] Bilateral screening 3D tomosynthesis digital mammogram, 06/04/2024 11:08 AM Clinical Data: SCREENING Comparison: 05/16/2023, 02/19/2022, 07/19/2020. Findings: No spiculated masses or clustered calcifications are seen. There are no secondary signs of carcinoma. MM/MM scr BI tomosynthesis [id number] Impression: Negative bilateral mammogram unchanged. Recommend annual screening mammograms. BIRADS: 1 - Negative FOLLOW UP: 1 Year Follow-up DENSITY: The breasts are extremely dense, which lowers the sensitivity of mammo graphy. The CAD food checkers and cashiers supervisor was used
== END 2024-06-04 11:01 | disposition home or self-care (01) ==
PROVIDERS: PCP Nurse Practitioner Family; Visit Provider Nurse Practitioner Family
DX: Z12.31 Encounter for screening mammogram for malignant neoplasm of breast (principal); R92.343 Mammographic extreme density, bilateral breasts
CPT/HCPCS: 77063; 77067

== ENCOUNTER 2024-06-19 08:51 | Oncology outpatient (recurring) (ONCR) | payer MEDICARE, SELFPAY ==
[2024-06-19] MEDS: NATALIZUMAB IV (09:48)
[2024-06-19] MEDS: SODIUM CHLORIDE 0.9% IV (09:48)
[2024-06-19 11:03] VITALS: BP 105/73; PULSE 74; RESP 17; TEMP 37; O2SAT 100
== END 2024-07-15 23:59 | disposition home or self-care (01) ==
PROVIDERS: PCP Nurse Practitioner Family; Visit Provider Psychiatry & Neurology Neurology
DX: G35 Multiple sclerosis (principal); Z79.899 Other long term (current) drug therapy
CPT/HCPCS: 96413; J2323

== ENCOUNTER 2024-07-22 11:09 | Oncology outpatient (recurring) (ONCR) | payer MEDICARE, SELFPAY ==
[2024-07-22] MEDS: NATALIZUMAB IV (12:29)
[2024-07-22] MEDS: SODIUM CHLORIDE 0.9% IV (12:29)
[2024-07-22 13:55] VITALS: BP 114/78; PULSE 79; RESP 16; TEMP 36.6; O2SAT 95
== END 2024-08-15 23:59 | disposition home or self-care (01) ==
PROVIDERS: PCP Nurse Practitioner Family; Visit Provider Psychiatry & Neurology Neurology
DX: G35 Multiple sclerosis (principal); Z79.899 Other long term (current) drug therapy
CPT/HCPCS: 96413; J2323

== ENCOUNTER → 2024-08-07 10:29 | Outpatient (BNVA) | payer MEDICARE, SELFPAY | PROVIDERS: PCP Family Medicine; Visit Provider Specialist | DX: G43.711 Chronic migraine without aura, intractable, with status migrainosus (principal) | CPT/HCPCS: 64615; J9999 ==

== ENCOUNTER 2024-09-11 08:25 | Oncology outpatient (recurring) (ONCR) | payer MEDICARE, SELFPAY ==
[2024-09-11 09:15] VITALS: BP 96/68; PULSE 74; RESP 16; TEMP 35.8; O2SAT 97
[2024-09-11] MEDS: SODIUM CHLORIDE 0.9% IV (09:52)
[2024-09-11] MEDS: NATALIZUMAB IV (09:52)
[2024-09-11 11:13] VITALS: BP 115/77; PULSE 74; RESP 17; TEMP 36.8; O2SAT 99
== END 2024-09-14 23:59 | disposition home or self-care (01) ==
PROVIDERS: PCP Family Medicine; Visit Provider Psychiatry & Neurology Neurology
DX: Z51.12 Encounter for antineoplastic immunotherapy (principal); G35 Multiple sclerosis; Z79.899 Other long term (current) drug therapy
CPT/HCPCS: 96413; J2323

== ENCOUNTER 2024-10-09 09:26 | Oncology outpatient (recurring) (ONCR) | payer MEDICARE, SELFPAY | END 2024-10-15 23:59 | disposition home or self-care (01) | PROVIDERS: PCP Family Medicine; Visit Provider Psychiatry & Neurology Neurology | DX: Z53.9 Procedure and treatment not carried out, unspecified reason (principal) ==

== ENCOUNTER 2024-10-26 11:25 | Oncology outpatient (recurring) (ONCR) | payer MEDICARE, SELFPAY ==
[2024-10-26 12:05] VITALS: BP 124/73; PULSE 98; TEMP 36.8
[2024-10-26] MEDS: SODIUM CHLORIDE 0.9% IV (12:43)
[2024-10-26] MEDS: NATALIZUMAB IV (12:43)
[2024-10-26 13:54] VITALS: BP 129/75; PULSE 95; TEMP 36.8; O2SAT 97
== END 2024-11-15 23:59 | disposition home or self-care (01) ==
PROVIDERS: PCP Family Medicine; Visit Provider Psychiatry & Neurology Neurology
DX: G35 Multiple sclerosis (principal); Z79.899 Other long term (current) drug therapy
CPT/HCPCS: 96413; J2323

== ENCOUNTER → 2024-11-12 09:55 | Outpatient (BNVA) | payer MEDICARE, SELFPAY | PROVIDERS: PCP Nurse Practitioner Family; Visit Provider Specialist | DX: G43.711 Chronic migraine without aura, intractable, with status migrainosus (principal) | CPT/HCPCS: 64615; J9999 ==

== ENCOUNTER 2024-11-23 11:58 | Oncology outpatient (recurring) (ONCR) | payer MEDICARE, SELFPAY ==
[2024-11-23 12:11] VITALS: BMI 22.1
[2024-11-23 12:16] VITALS: BP 109/70; PULSE 74; RESP 18; TEMP 36.6; O2SAT 98
[2024-11-23] MEDS: SODIUM CHLORIDE 0.9% IV (12:48)
[2024-11-23] MEDS: NATALIZUMAB IV (12:48)
[2024-11-23 13:51] VITALS: BP 113/70; PULSE 82; TEMP 36.8; O2SAT 99
== END 2024-12-15 23:59 | disposition home or self-care (01) ==
PROVIDERS: PCP Nurse Practitioner Family; Visit Provider Psychiatry & Neurology Neurology
DX: G35 Multiple sclerosis (principal); Z79.899 Other long term (current) drug therapy
CPT/HCPCS: 96413; J2323

== ENCOUNTER 2024-12-21 09:28 | Oncology outpatient (recurring) (ONCR) | payer MEDICARE, SELFPAY ==
[2024-12-21] MEDS: NATALIZUMAB IV (10:42)
[2024-12-21] MEDS: SODIUM CHLORIDE 0.9% IV (10:42)
[2024-12-21 11:45] VITALS: BP 116/81; PULSE 71; RESP 16; TEMP 36.7; O2SAT 98
== END 2025-01-15 23:59 | disposition home or self-care (01) ==
PROVIDERS: PCP Nurse Practitioner Family; Visit Provider Psychiatry & Neurology Neurology
DX: Z51.12 Encounter for antineoplastic immunotherapy (principal); G35.D Multiple sclerosis, unspecified; Z79.899 Other long term (current) drug therapy
CPT/HCPCS: 96413; J2323

== ENCOUNTER 2025-01-18 11:39 | Oncology outpatient (recurring) (ONCR) | payer MEDICARE, SELFPAY ==
[2025-01-18 12:29] VITALS: BP 115/77; PULSE 77; RESP 16; TEMP 36.7; O2SAT 98
[2025-01-18] MEDS: SODIUM CHLORIDE 0.9% IV (12:46)
[2025-01-18] MEDS: NATALIZUMAB IV (12:46)
[2025-01-18 13:48] VITALS: BP 126/79; PULSE 80; TEMP 36.1; O2SAT 98
== END 2025-02-14 23:59 | disposition home or self-care (01) ==
PROVIDERS: PCP Nurse Practitioner Family; Visit Provider Psychiatry & Neurology Neurology
DX: G35.D Multiple sclerosis, unspecified (principal); Z79.899 Other long term (current) drug therapy
CPT/HCPCS: 96413; J2323

== ENCOUNTER 2025-02-16 12:05 | Oncology outpatient (recurring) (ONCR) | payer MEDICARE, SELFPAY ==
[2025-02-16 12:26] VITALS: BP 105/73; PULSE 82; RESP 16; TEMP 36.8; O2SAT 100
[2025-02-16] MEDS: NATALIZUMAB IV (12:39)
[2025-02-16] MEDS: SODIUM CHLORIDE 0.9% IV (12:39)
[2025-02-16 13:40] VITALS: BP 106/69; PULSE 76; TEMP 36.8; O2SAT 98
== END 2025-03-17 23:59 | disposition home or self-care (01) ==
PROVIDERS: PCP Nurse Practitioner Family; Visit Provider Psychiatry & Neurology Neurology
DX: G35.D Multiple sclerosis, unspecified (principal); Z79.899 Other long term (current) drug therapy
CPT/HCPCS: 96413; J2323

== ENCOUNTER → 2025-02-18 11:00 | Outpatient (BNVA) | payer MEDICARE, SELFPAY | PROVIDERS: PCP Nurse Practitioner Family; Visit Provider Specialist | DX: G43.711 Chronic migraine without aura, intractable, with status migrainosus (principal) | CPT/HCPCS: 64615 ==